=== PATIENT | male | born 1975 ===

== ENCOUNTER 2023-10-24 07:46 | Emergency (ER) | payer BC ==
[2023-10-24] MEDS: HYDROmorphone 1 MG/ML Syringe IVPUSH ONE (08:25)
[2023-10-24 08:38] LABS: BASOPHILS ABSOLUTE AUTO 0.02 10^3/uL (0.00-0.10); BASOPHILS PERCENT AUTO 0.3 % (0.0-1.0); EOSINOPHILS ABSOLUTE AUTO 0.06 10^3/uL (0.10-0.30); HEMATOCRIT 41.7 % (40.0-52.0); HEMOGLOBIN 14.6 g/dL (13.0-17.0); IMMATURE GRAN ABSOLUTE AUTO 0.04 10^3/uL (0.00-0.50); IMMATURE GRAN PERCENT AUTO 0.7 % (0.0-5.0); LYMPHOCYTES ABSOLUTE AUTO 1.76 10^3/uL (1.00-4.00); LYMPHOCYTES PERCENT AUTO 28.8 % (20.0-40.0); MEAN CORPUSCULAR HEMOGLOBIN 30.7 pg (27.0-31.0); MEAN CORPUSCULAR VOLUME 87.8 fL (82.0-92.0); MEAN PLATELET VOLUME 11.3 fL (7.4-10.4); MONOCYTES ABSOLUTE AUTO 0.51 10^3/uL (0.10-0.80); MONOCYTES PERCENT AUTO 8.3 % (2.0-8.0); NEUTROPHILS ABSOLUTE AUTO 3.73 10^3/uL (2.50-7.00); NEUTROPHILS PERCENT AUTO 60.9 % (50.0-70.0); PLATELET COUNT,PLT 153 10^3/uL (150-400); RED BLOOD CELL COUNT 4.75 10^6/uL (4.50-6.00); RED CELL DISTRIBUTION WIDTH 14.2 % (11.5-14.5); WHITE BLOOD CELL COUNT,WBC 6.12 10^3/uL (5.00-10.00)
[2023-10-24] MEDS: Ketorolac 30 MG/ML SDV IVPUSH ONE (08:42)
[2023-10-24] MEDS: Sodium Chloride 0.9% 1,000 ML IV ONE (08:42)
[2023-10-24] MEDS: Sodium Chloride 0.9% 50 ML IV SCH (08:49)
[2023-10-24] MEDS: Iopamidol 755 Mg/ML 100 ML Bottle IV ONE (08:49)
[2023-10-24 08:54] LABS: ALBUMIN 4.04 g/dL (3.40-5.00); ANION GAP 13.8 mmol/L (5-15); BILIRUBIN TOTAL 0.5 mg/dL (0.2-1.0); CALCIUM 8.9 mg/dL (8.7-10.3); CARBON DIOXIDE,CO2 29.3 mmol/L (21.0-32.0); EST CRCL DRUG DOSING (CG) 105.03 mL/min; POTASSIUM,K 4.1 mmol/L (3.5-5.1); PROTEIN TOTAL,TP 7.4 g/dL (6.4-8.2)
[2023-10-24 10:09] LABS: APPEARANCE,URINE SLIGHTLY CLOUDY (CLEAR); BILIRUBIN,URINE NEGATIVE (NEGATIVE); COLOR,URINE YELLOW (YELLOW); GLUCOSE,URINE NEGATIVE (NEGATIVE); KETONES,URINE NEGATIVE (NEGATIVE); PROTEIN,URINE NEGATIVE (NEGATIVE)
[2023-10-24 10:10] LABS: BACTERIA,URINE RARE /HPF (NONE TO FEW); EPITHELIAL CELLS,URINE RARE /LPF; LEUKOCYTE ESTERASE,URINE NEGATIVE (NEGATIVE); NITRITE,URINE NEGATIVE (NEGATIVE); OCCULT BLOOD,URINE LARGE (NEGATIVE); RBC,URINE 20-30 /HPF (0-5); UROBILINOGEN,URINE 0.2 E.U./dL (0.2-1.0); WBC,URINE 0-5 /HPF (0-5)
== END 2023-10-24 11:20 | disposition home or self-care (01) ==
LOC: KA.ED 07:46 → MERGE 07:46 → KA.ED 11:20
DX: N13.2 Hydronephrosis with renal and ureteral calculous obstruction (principal); Z88.5 Allergy status to narcotic agent; Z79.82 Long term (current) use of aspirin; Z79.84 Long term (current) use of oral hypoglycemic drugs; Z79.899 Other long term (current) drug therapy
CPT/HCPCS: 36415; 74177; 80053; 81001; 85025; 96361; 96374; 96375; 99284; J1170; J1885; J3490; J7030; Q9967